=== PATIENT | male | born 2005 | race African-American/Black ===

== ENCOUNTER 2025-06-06 11:19 | Day surgery (SDC) | payer OTHER ==
[~2025-06-06] VITALS: Ht 180.3 cm; Wt 88.1 kg
[2025-06-06] MEDS ORDERED: IBUP200T46 PO (11:33)
[2025-06-06] MEDS ORDERED: KETOROLAC 30 MG/ML 1 ML VIAL IV ONE (12:00)
[2025-06-06] MEDS: MORPHINE 4 MG/ML 1 ML VIAL IV ONE (12:38)
[2025-06-06] MEDS: NS (Normal Saline) 0.9% 1,000 ML IV ONE (12:38)
[2025-06-06] MEDS: ONDANSETRON 4MG/2ML VIAL IV ONE (12:38)
[2025-06-06 12:55] LABS: BASO # 0.0 10^3/uL (0.0-0.2); BASO % 0.2 % (0.0-1.0); EOS # 0.0 10^3/uL (0.0-0.5); EOS % 0.1 % (0.0-3.0); LYMPH # 1.7 10^3/uL (1.5-5.0); LYMPH % 9.3 % (24.0-44.0); MONO # 1.2 10^3/uL (0.0-0.8); MONO % 6.3 % (2.0-8.0); NEUTROPHILS # 15.4 10^3/uL (1.5-8.5); NEUTROPHILS % 83.2 % (36.0-66.0); PLATELET COUNT, AUTOMATED 367 10^3/uL (150-450)
[2025-06-06] MEDS ORDERED: dexAMETHasone 4 MG/ML 1 ML VIAL As Ordered ONE (13:20)
[2025-06-06] MEDS ORDERED: ONDANSETRON 4MG/2ML VIAL As Ordered ONE (13:20)
[2025-06-06] MEDS ORDERED: ACETAMINOPHEN 1000MG/100ML IV BAG As Ordered ONE (13:20)
[2025-06-06] MEDS ORDERED: LIDOCAINE 2% 100 MG/5 ML SDV (FOR ANES.) As Ordered ONE (13:20)
[2025-06-06] MEDS ORDERED: dexmedeTOMIDine (4 MCG/ML) 200 MCG/50 ML BTL As Ordered ONE (13:20)
[2025-06-06 13:22] LABS: CALCIUM LEVEL 9.0 MG/DL (8.5-10.1); CARBON DIOXIDE LEVEL 29 MMOL/L (20-31); CHLORIDE LEVEL 101 MMOL/L (98-107); CREATININE FOR GFR 0.97 MG/DL (0.70-1.30); GLOMERULAR FILTRATION RATE > 90.0 (>60); POTASSIUM SERUM 3.6 MMOL/L (3.5-5.1); SODIUM LEVEL 141 MMOL/L (136-145)
[2025-06-06] MEDS ORDERED: HOME MED LIST COMPLETE! XX SCH (13:25)
[2025-06-06] MEDS ORDERED: MIDAZOLAM INJ 2 MG/2 ML VIAL As Ordered ONE (13:26)
[2025-06-06] MEDS ORDERED: SUCCINYLCHOLINE 100MG/5ML SYRINGE As Ordered ONE (13:42)
[2025-06-06 14:02] LABS: KETONE, URINE AUTO RFX TRACE mg/dL (NEGATIVE); LEUKOCYTE ESTERASE UR AUTO RFX NEGATIVE (NEGATIVE); NITRITE, URINE AUTO RFX NEGATIVE (NEGATIVE); RBC, URINE AUTO RFX 0 /HPF (0-3); SQUAM EPITHELIAL CELL UR AURFX 0 /HPF (0-6); WBC, URINE AUTO RFX 1 /HPF (0-3)
[2025-06-06] MEDS ORDERED: KETOROLAC 30 MG/ML 1 ML VIAL As Ordered ONE (14:35)
[2025-06-06] MEDS: LIDOCAINE 2% MDV 20 ML VIAL As Ordered ONE (14:42)
[2025-06-06] MEDS ORDERED: CEPH500C PO (14:57)
[2025-06-06] MEDS ORDERED: HYDR-3713 PO (14:57)
[2025-06-06 16:20] VITALS: BP 116/57; TEMP 98.1; O2SAT 98
[2025-06-06] MEDS ORDERED: HYDR-3715 PO (16:56)
== END 2025-06-06 17:00 | disposition home or self-care (01) ==
LOC: M ED 11:19 → M SDC 11:20
PROVIDERS: ATTEND Urology
DX: N44.00 Torsion of testis, unspecified (principal)
CPT/HCPCS: 36415; 54512; 54640; 54830; 76870; 80048; 81001; 85025; 86850; 86900; 86901; 96374; 96375; 99284; J0131; J0330; J0665; J0688; J1100; J1885; J2250; J2405; J3010